=== PATIENT | male | born 1945 | race Caucasian/White ===

== ENCOUNTER 2017-01-04 07:23 | Inpatient (IN) | payer MEDICARE, BC ==
[~2017-01-04] VITALS: Ht 188 cm; Wt 95.7 kg
[2017-01-04 07:55] LABS: HEMOGLOBIN 13.9 gm/dl (14.0-17.5); RED BLOOD COUNT 4.96 M/UL (4.20-5.50); WHITE BLOOD COUNT 13.6 K/UL (4.5-11.0)
[2017-01-04 08:33] LABS: BUN/CREATININE RATIO 16 (0-10)
== END 2017-01-05 18:23 | disposition expired | DRG 64 ==
LOC: ER1 07:23 → ZEROF 08:36 → CCU 15:57
PROVIDERS: Emergency Medicine; ADMIT Internal Medicine Infectious Disease
PROC: 5A1945Z Respiratory Ventilation, 24-96 Consecutive Hours (ICD-10-PCS; principal; 2017-01-04)
DX: I63.9 Cerebral infarction, unspecified (principal); J96.02 Acute respiratory failure with hypercapnia; J96.01 Acute respiratory failure with hypoxia; R40.2112 Coma scale, eyes open, never, at arrival to emergency department; E87.2 Acidosis; N17.9 Acute kidney failure, unspecified; I67.82 Cerebral ischemia; R50.81 Fever presenting with conditions classified elsewhere; R40.2432 Glasgow coma scale score 3-8, at arrival to emergency department; I10 Essential (primary) hypertension; M19.90 Unspecified osteoarthritis, unspecified site; R73.9 Hyperglycemia, unspecified; I45.10 Unspecified right bundle-branch block; Z66 Do not resuscitate; Z51.5 Encounter for palliative care; Z79.82 Long term (current) use of aspirin; Z87.891 Personal history of nicotine dependence
CPT/HCPCS: 36415; 36600; 70450; 71010; 80048; 80053; 80307; 81001; 82140; 82248; 82272; 82550; 82803; 82962; 83036; 83605; 83735; 84439; 84443; 84484; 85025; 85610; 85730; 86850; 86900; 86901; 87040; 87086; 93005; 94002; 94003; 94640; 96360; 96361; 96372; 99285; A4628; C9113; G0480; J1815; J7030